=== PATIENT | female | born 2000 | race Two or more races ===

== ENCOUNTER 2022-07-07 13:30 | Emergency (ER) | payer OTHER, SELFPAY ==
--- OUTSIDE RECORDS SUMMARY | 2022-07-07 13:33 | XMS REPORT | Continuity of Care Document ---
:2000 Author Organization [facility] t Address [address] [place] [address] Care Team Providers Name Role Phone LANE DONNELLY Primary Care Physician Unavailable COLE HOROWITZ Attending Clinician Unavailable LANE DONNELLY Attending Clinician Unavailable Payers Payer Name Policy Type Policy Number Effective Date Expiration Date S manjit [facility] [id number] 2018 00:00:00 2021 00:00:00 Problems This patient has no known problems. Allergies, Adverse Reactions, Alerts Allergy Allergy Status Severity Reaction(s) Onset Inactive Treating Comm ents Source Name Type Date Date Clinician NO KNOWN Drug Active Univers ALLERGIE Class ity [facility] Medications This patient has no known medications. Procedures This patient has no known procedures. Encounters Start End Encounter Admission Attending Care Care Encounter Source Date/Time Date/Time Type Type Clinicians Facility Department ID 2022-03-03 2022-03-03 Outpatient Sven HOROWITZ [facility] [id number] Univers 09:45:00 09:45:00 COLE geller [facility] 2021-01-17 2021-01-17 Outpatient [facility] [id number] Univers 13:40:00 [facility]40[facility] 2021-01-15 Outpatient [facility] [id number] Univers 13:40:00 13:40:[facility] 2020-12-25 2020-12-25 Outpatient [facility] [id number] Univers 13:30:00 13:30:00 [facility] 2020-08-12 2020-08-12 Outpatient Sven DONNELLY [facility] [id number] Univers 08:45:00 08:45:00 L[address] ity o f [facility] 2020-07-28 2020-07-28 Outpatient R AKINSIPE, [facility] [id number] Univers 10:00:00 10:00:[address] L[address] ity o f [facility] 2020-07-26 2020-07-26 Outpatient R AKINSIPE, [facility] [id number] Univers 09:30:00 09:30:[address] L[address] ity o f [facility] 2020-05-20 2020-05-20 Outpatient R AKINSIPE, [facility] [id number] Univers 13:15:00 13:15:[address] ity o f [facility] 2020-05-13 2020-05-13 Outpatient R AKINSIPE, [facility] [id number] Univers 10:30:00 10:30:[address] ity o f [facility] 2020-02-18 2020-02-18 Outpatient R AKINSIPE, [facility] [id number] Univers 16:00:00 16:00:[address] ity o f [facility] 2020-02-13 2020-02-13 Outpatient R AKINSIPE, [facility] [id number] Univers 10:30:00 10:30:[address] L[address] ity o f [facility] 2020-02-12 2020-02-12 Outpatient R [facility] [id number] Univers 10:15:00 10:15:00 [facility] 2019-11-14 2019-11-14 Outpatient R [facility] [id number] Univers 09:30:00 09:30:00 [facility] Results This patient has no known results.
--- NOTE | 2022-07-07 15:18 | EDPHYS ---
Physician Documentation [facility] Name: Cheyenne Koo Age: 21 yrs Sex: Female : 2000 Arrival Date: 07/07/2022 Time: 13:34 Bed Waiting Private MD: ED Physician Andrés Richmond HPI: 07/07 14:30 This 21 yrs old Female presents to ER via Ambulatory with complaints of Sore Throat, cp Swollen Glands. 14:30 The patient presents with sore throat. Onset: The symptoms/episode began/occurred 4 cp day(s) ago. Severity of symptoms: in the emergency department the symptoms are unchanged, despite home interventions. Associated signs and symptoms: Pertinent positives: cough, congestion, Pertinent negatives fever, flu-like symptoms, headache. 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 - Social history:: Smoking status: Patient denies any tobacco usage or history of. ROS: 14:35 Constitutional: Negative for body aches, chills, fever, poor PO intake. cp 14:35 Eyes: Negative for injury, pain, redness, and discharge. cp 14:35 ENT: Positive for ear pain, sore throat, Negative for drainage from ear(s), difficulty swallowing, difficulty handling secretions. 14:35 Cardiovascular: Negative for chest pain, palpitations. 14:35 Respiratory: Positive for cough, with no reported sputum, Negative for shortness of breath, wheezing. 14:35 Abdomen/GI: Negative for abdominal pain, nausea, vomiting, and diarrhea. 14:35 Neuro: Negative for altered mental status, headache, weakness. 14:35 All other systems are negative. Exam: 14:40 Constitutional: The patient appears in no acute distress, alert, awake, non-toxic, well cp developed, well nourished. 14:40 Head/Face: Normocephalic, atraumatic. cp 14:40 Eyes: Periorbital structures: appear normal, Conjunctiva: normal, no exudate, no injection, Sclera: no appreciated abnormality, Lids and lashes: appear normal, bilaterally. 14:40 ENT: External ear(s): are unremarkable, Ear canal(s): are normal, clear, TM's: dullness, bilaterally, Nose: is normal, Mouth: Lips: moist, Oral mucosa: moist, Posterior pharynx: Airway: no evidence of obstruction, patent, Tonsils: bilaterally enlarged, with erythema, with exudate, Uvula: midline, erythema, that is moderate, Voice: is normal. 14:40 Neck: ROM/movement: is normal, is supple, no meningismus, no nuchal rigidity, Lymph nodes: lymphadenopathy is appreciated, anterior cervical nodes. 14:40 Chest/axilla: Inspection: normal. 14:40 Cardiovascular: Rate: normal, Rhythm: regular. 14:40 Respiratory: the patient does not display signs of respiratory distress, Respirations: normal, no use of accessory muscles, no retractions, labored breathing, is not present, Breath sounds: are clear throughout, no decreased breath sounds, no stridor, no wheezing. 14:40 Abdomen/GI: Exam negative for discomfort, distension, guarding, Inspection: abdomen appears normal. Vital Signs: 13:50 BP 123 / 83; Pulse 74; Resp 18; Temp 98.5; Pulse Ox 100% ; Weight 81.65 kg; Height 5 kb3 ft. 7 in. (170.18 cm); Pain 4/10; 15:23 BP 121 / 71; Pulse 75; Resp 16; Pulse Ox 100% ; kb3 13:50 Body Mass Index 28.19 (81.65 kg, 170.18 cm) kb3 MDM: 13:58 Patient medically screened. cp 14:45 Differential diagnosis: group A strep tonsillitis, influenza, laryngitis, josie's cp angina, mononucleosis, peritonsillar abscess pharyngitis. 15:17 Data reviewed: vital signs, nurses notes, lab test result(s). cp 15:17 Counseling: I had a detailed discussion with the patient and/or guardian regarding: the cp historical points, exam findings, and any diagnostic results supporting the discharge/admit diagnosis, lab results, to return to the emergency department if symptoms worsen or persist or if there are any questions or concerns that arise at home. 07/07 14:13 Order name: Strep cp 07/07 14:52 Order name: Throat Culture EDMS Administered Medications: No medications were administered Disposition Summary: 07/07/22 15:17 Discharge Ordered Location: Home cp Problem: new cp Symptoms: have improved cp Condition: Stable cp Diagnosis - Acute tonsillitis, unspecified cp Followup: cp - With: Private Physician - When: 2 - 3 days - Reason: Worsening of condition Discharge Instructions: - Discharge Summary Sheet cp - Tonsillitis cp Forms: - Medication Reconciliation Form cp - Thank You Letter cp - Antibiotic Education cp - Prescription Opioid Use cp Prescriptions: - Clindamycin HCl 300 mg Oral Capsule - take 1 capsule by ORAL route every 6 hours for 10 days; 40 capsule; Refills: 0, cp Product Selection Permitted - Ibuprofen 800 mg Oral Tablet - take 1 tablet by ORAL route every 8 hours As needed take with food; 30 tablet; cp Refills: 0, Product Selection Permitted Addendum: 07/11/2022 09:32 Co-signature as Attending Physician, Andrés LLOYD was immediately available on-site m s3 in the Emergency Department for consultation in the care of the patient. Signatures: Dispatcher [employer] EDMS Arnoldo Gipson PA PA cp Andrés Richmond DO DO ms3 Piedad Horta RN RN kb3 Corrections: (The following items were deleted from the chart) 07/08 14:07/07 15:20 This 21 yrs old Female presents to ER via Ambulatory with complaints of cp Sore Throat, Swollen Glands. cp 07/08 14:07/07 15:20 The patient presents with sore throat, cp cp 07/08 14:07/07 15:20 Onset: The symptoms/episode began/occurred 4 day(s) ago, cp cp 07/08 14:07/07 15:20 Associated signs and symptoms: Pertinent positives: cough, congestion, cp Pertinent negatives fever, flu-like symptoms, headache, cp 07/08 14:07/07 15:20 Severity of symptoms: in the emergency department the symptoms are cp unchanged, despite home interventions, cp
--- NOTE | 2022-07-07 15:18 | ER ---
Nurse's Notes [facility] Name: Cheyenne Koo Age: 21 yrs Sex: Female : 2000 Arrival Date: 07/07/2022 Time: 13:34 Bed Waiting Private MD: Diagnosis: Acute tonsillitis, unspecified Presentation: 07/07 13:50 Chief complaint: Patient states: Pt reports swollen tonsils, sore throat, kb3 cough/congestion x5 days. Coronavirus screen: Vaccine status: Patient reports receiving the 2nd dose of the covid vaccine. Client denies travel out of the [place] in the last 14 days. Ebola Screen: Patient negative for fever greater than or equal to 101.5 degrees Fahrenheit, and additional compatible Ebola Virus Disease symptoms Patient denies exposure to infectious person. Patient denies travel to an Ebola-affected area in the 21 days before illness onset. Initial Sepsis Screen: Does the patient meet any 2 criteria? No. Patient's initial sepsis screen is negative. Does the patient have a suspected source of infection? No. Patient's initial sepsis screen is negative. Risk Assessment: Do you want to hurt yourself or someone else? Patient reports no desire to harm self or others. Onset of symptoms was July 02, 2022. 13:50 Method Of Arrival: Ambulatory kb3 13:50 Acuity: ARIANA 4 kb3 Triage Assessment: 13:54 General: Appears in no apparent distress. Behavior is calm, cooperative. Pain: kb3 Complains of pain in left aspect of posterior pharynx and right aspect of posterior pharynx Pain does not radiate. Pain currently is 4 out of 10 on a pain scale. Quality of pain is described as burning, sharp. EENT: Throat is pink has enlarged tonsils. 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 - Social history:: Smoking status: Patient denies any tobacco usage or history of. Screenin:21 Abuse screen: Denies threats or abuse. Denies injuries from another. Nutritional kb3 screening: No deficits noted. Tuberculosis screening: No symptoms or risk factors identified. Fall Risk None identified. Assessment: 15:21 General: Pt returned to triage for discharge. NAD. Respiratory: Airway is patent kb3 Respiratory effort is even, unlabored, Breath sounds are clear bilaterally. Vital Signs: 13:50 BP 123 / 83; Pulse 74; Resp 18; Temp 98.5; Pulse Ox 100% ; Weight 81.65 kg; Height 5 kb3 ft. 7 in. (170.18 cm); Pain 4/10; 15:23 BP 121 / 71; Pulse 75; Resp 16; Pulse Ox 100% ; kb3 13:50 Body Mass Index 28.19 (81.65 kg, 170.18 cm) kb3 ED Course: 13:34 Patient arrived in ED. as 13:37 Arnoldo Gipson PA is PHCP. cp 13:37 Andrés Richmond DO is Attending Physician. cp 13:53 Triage completed. kb3 13:54 Arm band placed on right wrist. kb3 14:34 Strep Sent. zm 15:21 Patient has correct armband on for positive identification. kb3 15:21 No provider procedures requiring assistance completed. Patient did not have IV access kb3 during this emergency room visit. Administered Medications: No medications were administered Medication: 15:21 VIS not applicable for this client. kb3 Outcome: 15:17 Discharge ordered by . cp 15:21 Discharged to home ambulatory. kb3 15:21 Condition: stable 15:21 Discharge instructions given to patient, Instructed on discharge instructions, follow up and referral plans. medication usage, Demonstrated understanding of instructions, follow-up care, medications. 15:24 Patient left the ED. kb3 Signatures: Sammi Lao Corey, PA PA cp Martinez, Zaina zm Bradberry, Kelly, RN RN kb3
[2022-07-07 15:41] VITALS: TEMP 98.5; O2SAT 100
[2022-07-07 15:42] VITALS: BP 121/71
== END 2022-07-07 15:24 | disposition home or self-care (01) ==
LOC: ER 13:30
DX: J03.90 Acute tonsillitis, unspecified (principal)
CPT/HCPCS: 87070; 87081; 99283

== ENCOUNTER 2022-08-10 21:03 | Emergency (ER) | payer SELFPAY ==
--- OUTSIDE RECORDS SUMMARY | 2022-08-10 21:06 | XMS REPORT | Continuity of Care Document ---
:2000 Author Organization [facility] t Address [address] [place] [address] Care Team Providers Name Role Phone LANE DONNELLY Primary Care Physician Unavailable COLE HOROWITZ Attending Clinician Unavailable LANE DONNELLY Attending Clinician Unavailable Payers Payer Name Policy Type Policy Number Effective Date [facility] Date [id number] 2018 00:00:00 2021 00:00:00 Problems This patient has no known problems. Allergies, Adverse Reactions, Alerts Allergy Allergy Status Severity Reaction(s) Onset Inactive Treating Comm ents Source Name Type Date Date Clinician NO KNOWN Drug Active [facility]ERGIE Class ity [facility] Medications This patient has no known medications. Procedures This patient has no known procedures. Encounters Start End Encounter Admission Attending Care Care Encounter Source Date/Time Date/Time Type Type Clinicians Facility Department ID 2022-03-03 2022-03-03 Outpatient Sven HOROWITZ [facility] [id number] Univers 09:45:00 09:45:00 COLE posada o f [facility] 2021-01-17 2021-01-17 Outpatient [facility] [id number] Univers 13:40:00 13:40:00 ity [facility] 2021-01-15 2021-01-15 Outpatient [facility] [id number] Univers 13:40:[facility] 2020-12-25 Out[facility] [id number] Univers 13:30:[facility] 2020-08-12 Outpatient R AKINSIPE, [facility] [id number] Univers 08:45:00 08:45:[address] ity o f [facility] 2020-07-28 2020-07-28 Outpatient R AKINSIPE, [facility] [id number] Univers 10:00:00 10:00:[address] ity o f [facility] 2020-07-26 2020-07-26 Outpatient R AKINSIPE, [facility] [id number] Univers 09:30:00 09:30:[address] ity o f [facility] 2020-05-20 2020-05-20 Outpatient R AKINSIPE, [facility] [id number] Univers 13:15:00 13:15:[address] ity o f [facility] 2020-05-13 2020-05-13 Outpatient R AKINSIPE, [facility] [id number] Univers 10:30:00 10:30:[address] ity o f [facility] 2020-02-18 2020-02-18 Outpatient R AKINSIPE, [facility] [id number] Univers 16:00:00 16:00:[address] ity o f [facility] 2020-02-13 2020-02-13 Outpatient R AKINSIPE, [facility] [id number] Univers 10:30:00 10:30:[address] ity o f [facility] 2020-02-12 2020-02-12 Outpatient R [facility] [id number] Univers 10:15:00 10:15:00 [facility] 2019-11-14 2019-11-14 Outpatient R [facility] [id number] Univers 09:30:00 09:30:00 [facility] Results This patient has no known results.
[2022-08-10] MEDS ORDERED: ACETAMINOPHEN 500 MG TAB ONE (21:31)
[2022-08-10 22:16] LABS: SARS-COV-2 RT PCR NEGATIVE (NEGATIVE)
--- NOTE | 2022-08-10 23:00 | ER ---
Nurse's Notes [facility] Name: Cheyenne Koo Age: 22 yrs Sex: Female : 2000 Arrival Date: 08/10/2022 Time: 21:20 Bed IW2 Private MD: Diagnosis: Influenza due to identified novel influenza A virus;Fever, unspecified;Myalgia Presentation: 08/10 21:26 Chief complaint: Patient states: "I have aches, I have a bad cough and I have a tw5 fever.". Coronavirus screen: Vaccine status: Patient reports receiving the 2nd dose of the covid vaccine. Moderna. Ebola Screen: Patient negative for fever greater than or equal to 101.5 degrees Fahrenheit, and additional compatible Ebola Virus Disease symptoms. Ebola Screen: Patient denies exposure to infectious person. Patient denies travel to an Ebola-affected area in the 21 days before illness onset. Initial Sepsis Screen: Does the patient meet any 2 criteria? HR > 90 bpm. Does the patient have a suspected source of infection? Yes: Productive cough/pneumonia. Risk Assessment: Do you want to hurt yourself or someone else? Patient reports no desire to harm self or others. Onset of symptoms was August 09, 2022. 21:26 Method Of Arrival: Ambulatory tw5 21:26 Acuity: ARIANA 4 tw5 Triage Assessment: 21:27 General: Appears in no apparent distress. Behavior is calm, cooperative, appropriate tw5 for age. Pain: Pain currently is 7 out of 10 on a pain scale. 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 - Social history:: Smoking status: Patient denies any tobacco usage or history of. Screenin:05 Abuse screen: Denies threats or abuse. Denies injuries from another. Nutritional as6 screening: No deficits noted. Tuberculosis screening: No symptoms or risk factors identified. Fall Risk None identified. Vital Signs: 21:26 BP 126 / 80; Pulse 120; Resp 18; Temp 102.7; Pulse Ox 100% on R/A; Weight 81.65 kg; tw5 Height 5 ft. 6 in. (167.64 cm); Pain 7/10; 23:04 BP 137 / 77; Pulse 100; Resp 18 S; Temp 99.8(O); Pulse Ox 98% on R/A; as6 21:26 Body Mass Index 29.05 (81.65 kg, 167.64 cm) tw5 ED Course: 21:20 Patient arrived in ED. bp1 21:20 Andrés Richmond DO is Attending Physician. ms3 21:27 Triage completed. tw5 21:27 Arm band placed on. tw5 21:30 COVID-19/FLU A+B Sent. tw5 22:53 Matheus Lim DO is Referral Physician. ms3 23:05 Patient has correct armband on for positive identification. as6 23:05 No provider procedures requiring assistance completed. Patient did not have IV access as6 during this emergency room visit. Administered Medications: 21:30 Drug: Tylenol 1000 mg Route: PO; tw5 23:06 Follow up: Response: No adverse reaction; Temperature is decreased as6 Medication: 23:05 VIS not applicable for this client. as6 Outcome: 22:54 Discharge ordered by . ms3 23:05 Discharged to home ambulatory, with significant other. as6 23:05 Condition: stable 23:05 Discharge instructions given to patient, Instructed on discharge instructions, follow up and referral plans. medication usage, Demonstrated understanding of instructions, follow-up care, medications, Prescriptions given X 1. 23:06 Patient left the ED. as6 Signatures: Andrés Richmond DO DO ms3 Emmie Gutiérrez bp1 Bertha Felix tw5 Jack Pratt, RN RN as6
--- NOTE | 2022-08-10 23:00 | EDPHYS ---
Physician Documentation [facility] Name: Cheyenne Koo Age: 22 yrs Sex: Female : 2000 Arrival Date: 08/10/2022 Time: 21:20 Bed IW2 Private MD: ED Physician Andrés Richmond HPI: 08/10 22:54 This 22 yrs old Female presents to ER via Ambulatory with complaints of Fever. ms3 22:54 The patient reports fever, that was measured at 103 degrees Fahrenheit. Onset: The ms3 symptoms/episode began/occurred acutely, 2 hour(s) ago. Modifying factors: there are no obvious modifying factors. Associated signs and symptoms: Pertinent positives: chills, myalgias. Severity of symptoms: At their worst the symptoms were moderate in the emergency department the symptoms are unchanged. 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 - Social history:: Smoking status: Patient denies any tobacco usage or history of. ROS: 22:54 Constitutional: Negative for fever, and chills. Eyes: Negative for injury, pain, ms3 redness, and discharge, Neck: Negative for injury, pain, and swelling, Cardiovascular: Negative for chest pain, and palpitations. Respiratory: Negative for shortness of breath, cough, wheezing, and pleuritic chest pain, Abdomen/GI: Negative for abdominal pain, nausea, vomiting, diarrhea, and constipation, Skin: Negative for injury, rash, and discoloration. 22:54 MS/extremity: Positive for body aches. 22:54 All other systems are negative. Exam: 22:54 Constitutional: This is a well developed, well nourished patient who is awake, alert, ms3 and in no acute distress. Head/Face: Normocephalic, atraumatic. Neck: Trachea midline, no cervical lymphadenopathy. Supple, full range of motion without nuchal rigidity, or vertebral point tenderness. No Meningismus. Chest/axilla: Normal chest wall appearance and motion. Nontender with no deformity. 22:54 Abdomen/GI: Soft, non-tender, with normal bowel sounds. No distension or tympany. No guarding or rebound. No evidence of tenderness throughout. Back: No spinal tenderness. No costovertebral tenderness. Full range of motion. Skin: Warm, dry with normal turgor. Normal color with no rashes, no lesions, and no evidence of cellulitis. MS/ Extremity: Pulses equal, no cyanosis. Neurovascular intact. Full, normal range of motion. 22:54 Cardiovascular: Rate: tachycardic, Rhythm: regular, Pulses: no pulse deficits are appreciated, Heart sounds: normal, normal S1and S2. Vital Signs: 21:26 BP 126 / 80; Pulse 120; Resp 18; Temp 102.7; Pulse Ox 100% on R/A; Weight 81.65 kg; tw5 Height 5 ft. 6 in. (167.64 cm); Pain 7/10; 23:04 BP 137 / 77; Pulse 100; Resp 18 S; Temp 99.8(O); Pulse Ox 98% on R/A; as6 21:26 Body Mass Index 29.05 (81.65 kg, 167.64 cm) tw5 MDM: 21:24 Patient medically screened. ms3 22:54 Data reviewed: vital signs, nurses notes, lab test result(s), and as a result, I will ms3 discharge patient. Counseling: I had a detailed discussion with the patient and/or guardian regarding: the historical points, exam findings, and any diagnostic results supporting the discharge/admit diagnosis, lab results, the need for outpatient follow up. ED course: Discussed labs with patient. Patient to follow-up with Dr. Lim in 2 to 3 days. Patient understands agrees with plan. All questions were answered. Return precautions discussed include worsening symptoms, or any other concerns. On reevaluation patient is alert and oriented x4, in no apparent distress, nontoxic, ambulatory in the emergency department, speaking full sentences. 08/10 21:24 Order name: COVID-19/FLU A+B; Complete Time: 22:44 ms3 Administered Medications: 21:30 Drug: Tylenol 1000 mg Route: PO; tw5 23:06 Follow up: Response: No adverse reaction; Temperature is decreased as6 Disposition Summary: 08/10/22 22:54 Discharge Ordered Location: Home ms3 Condition: Stable ms3 Diagnosis - Influenza due to identified novel influenza A virus ms3 - Fever, unspecified ms3 - Myalgia ms3 Followup: ms3 - With: Matheus Lim DO - When: 2 - 3 days - Reason: Recheck today's complaints Discharge Instructions: - Discharge Summary Sheet ms3 - Influenza, Adult, [id number] ms3 Forms: - Medication Reconciliation Form ms3 - Thank You Letter ms3 - Antibiotic Education ms3 - Prescription Opioid Use ms3 Prescriptions: - Tamiflu 75 mg Oral Capsule - take 1 tablet by ORAL route every 12 hours for 5 days; 10 tablet; Refills: 0, ms3 Product Selection Permitted Signatures: Dispatcher [employer] Andrés Hastings DO DO ms3 Bertha Felix tw5 Jack Pratt RN as6
[2022-08-10 23:35] VITALS: BP 137/77; TEMP 99.8; O2SAT 98
== END 2022-08-10 23:06 | disposition home or self-care (01) ==
LOC: ER 21:03
DX: J10.1 Influenza due to other identified influenza virus with other respiratory manifestations (principal); M79.10 Myalgia, unspecified site; Z20.822 Contact with and (suspected) exposure to COVID-19
CPT/HCPCS: 0240U; 99283